=== PATIENT | female | born 1955 | race Caucasian/White ===

== ENCOUNTER 2023-05-23 08:37 | Emergency (ER) | payer MEDICARE ==
[~2023-05-23] VITALS: Ht 165.1 cm; Wt 80.2 kg
[2023-05-23 08:40] VITALS: BP 148/89; PULSE 73; RESP 18; O2SAT 96
== END 2023-05-23 09:05 | disposition left against medical advice (07) ==
LOC: ER 08:38
DX: M54.9 Dorsalgia, unspecified (principal); Z53.21 Procedure and treatment not carried out due to patient leaving prior to being seen by health care provider
CPT/HCPCS: 99281